=== PATIENT | male | born 1970 | race Caucasian/White ===

== ENCOUNTER 2017-12-10 07:47 | Day surgery (SDC) | payer MEDICARE, BC ==
[~2017-12-10 07:47] MED LIST: Bupivacaine 0.5%/EPINEPHrine 1:200,000 50 ML MDV ONE; Dexamethasone 4 MG/ML SDV ONE; Gentamicin 40 MG/ML 2 ML Vial ONE; Midazolam 1 MG/ML 2 ML SDV ONE; Ondansetron 4 MG/2 ML SDV ONE; Povidone-Iodine 10% Soln 118.25 ML Bottle ONE; Propofol 200 MG/20 ML SDV ONE; Rocuronium 50 MG/5 ML Vial ONE; Succinylcholine 200 MG/10 ML MDV ONE; fentaNYL 250 MCG/5 ML SDV ONE
[2017-12-10] MEDS ORDERED: ceFAZolin 2 GM in Premix Bag 1 BAG IV ONE (08:15)
[2017-12-10] MEDS ORDERED: Lactated Ringers 1,000 ML IV SCH (08:15)
[2017-12-10] MEDS ORDERED: Glycopyrrolate 0.2 MG/ML 5 ML MDV ONE (09:38)
[2017-12-10] MEDS ORDERED: Neostigmine Methylsulfate 1 MG/ML 5 ML Syringe ONE (09:38)
[2017-12-10] MEDS ORDERED: hydrOXYzine HCl 100 MG/2 ML SDV IM ONE (10:41)
[2017-12-10] MEDS ORDERED: Ketorolac 60 MG/2 ML SDV IM ONE (11:59)
--- NOTE | 2017-12-10 15:22 | OR ---
DATE OF PROCEDURE: 12/10/2017 PREOPERATIVE DIAGNOSIS: Right knee medial meniscus tear. POSTOPERATIVE DIAGNOSIS: Right knee medial meniscus tear. PROCEDURE: Right knee arthroscopy and partial medial meniscectomy. DIRECTOR CLINICAL APPLICATIONS: TONIA Fuentes. Physician visitor services information assistant, TONIA Ring, played an essential role in assisting in this case, helping to position the patient, retract structures as needed, as well as suturing and cutting sutures as indicated. Her presence improved patient's safety and decreased operative time. ANESTHESIA: General endotracheal intubation. FLUID: Lactated Ringer solution. ESTIMATED BLOOD LOSS: Less than 10 mL. COMPLICATIONS: None. SPECIMEN: None. DISCHARGE DISPOSITION: Stable to PACU. INDICATIONS: The patient was seen preoperatively in the clinic. He failed nonoperative treatment. Preoperative imaging confirmed the above-mentioned diagnosis. Risks and benefits of the procedure were explained to the patient and informed consent was obtained. DESCRIPTION OF PROCEDURE: The patient was seen preoperatively by myself and the Anesthesia staff in the preoperative holding area, where the operative site was marked. He was brought to the operative suite by the Anesthesia staff, where general anesthesia was administered. All extremities were found to be well padded. His left lower extremity was placed in a stirrup. The right lower extremity had a well-padded tourniquet on the thigh plus a leg le with two gel pads on it. The right lower extremity was prepped and draped in a sterile manner. Time-out was called identifying the correct patient, the correct procedure, the correct site, and that antibiotics had been begun within an appropriate period of time. The right lower extremity was then exsanguinated. Tourniquet was raised to 350 mmHg for 15 minutes and let down after closure. The lateral portal was then made with a scalpel. Trocar was inserted. I then inserted the arthroscope into the suprapatellar pouch, medial. There was minimal chondromalacia of the patella on the anterior femur. I then inspected both medial and lateral gutters, which did not show any osteophytes. I then used a spinal needle to place my medial portal and then placed it with a knife and trocar and inserted my shaver. I then removed the infrapatellar fat pad as well as some synovial tissue and then used the ablation unit to control any bleeding. The anteromedial meniscus was normal. The posterolateral and posteromedial meniscus both had horizontal degenerative tears. These were treated by biting the posterolateral one with a biter and then getting the free edges with a shaver and then ablating. The posteromedial one was able to be taken care of just by shaving and ablating it. Once the free edges were taken down to stable borders, I then moved to the lateral compartment. The lateral meniscus was in good repair. Minimal chondromalacia was seen in both compartments. I then removed my instruments and then injected local anesthetic into the joint as well as the portal sites and then closed with 3- 0 nylon in horizontal mattress manner followed by sterile dressing. The patient was then allowed to awaken from general anesthesia, transferred to his bed, and taken to the PACU in a stable condition. Colton Mortensen DO /[id number]
== END 2017-12-10 13:05 | disposition home or self-care (01) ==
LOC: JP.SDS 07:47
PROVIDERS: ATTEND Orthopaedic Surgery
DX: M23.321 Other meniscus derangements, posterior horn of medial meniscus, right knee (principal); E66.01 Morbid (severe) obesity due to excess calories; Z87.891 Personal history of nicotine dependence
CPT/HCPCS: 29881; J0330; J0690; J1100; J1580; J1885; J2250; J2405; J2704; J2710; J3010; J3410; J7120

== ENCOUNTER 2018-02-16 03:27 | Emergency (ER) | payer MEDICARE, BC ==
[2018-02-16] MEDS ORDERED: Ketorolac 30 MG/ML SDV IVPUSH ONE (03:34)
[2018-02-16] MEDS ORDERED: Tamsulosin 0.4 MG Cap.ER PO ONE (03:35)
[2018-02-16] MEDS ORDERED: HYDROmorphone 1 MG/ML Syringe IVPUSH ONE (03:35)
[2018-02-16] MEDS ORDERED: Metoclopramide 10 MG/2 ML SDV IVPUSH ONE (03:35)
--- NOTE | 2018-02-16 03:58 | EDM.PDOC ---
ED HPI GENERAL MEDICAL PROBLEM - General Chief Complaint: Flank Pain Stated Complaint: LOWER BACK PAIN - RIGHT SIDE Time Seen by Provider: 02/16/18 03:45 Source of Information: Reports: Patient, Old Records, RN History Limitations: Reports: No Limitations - History of Present Illness INITIAL COMMENTS - FREE TEXT/NARRATIVE: 48 yo male here with R flank pain since about 0130h tonight. Pain is associated with nausea. No fever. He denies a hx of kidney stones. He has not voided since the onset of the pain. Onset: Today Onset Date: 02/16/18 Onset Time: 01:30 Duration: Hour(s): (2+), Waxing/Waning Location: Reports: Back (R flank) Quality: Reports: Pressure Severity: Severe Improves with: Reports: None Worsens with: Reports: None Context: Reports: Other (unknown) Associated Symptoms: Reports: Diaphoresis, Nausea/Vomiting. Denies: Fever/ Chills, Rash Treatments COLLECTOR: Reports: Other (see below) (none) Right Flank Pain Score (Numeric/FACES): 3 - Related Data Allergies Allergy/AdvReac Type Severity Reaction Status Date / Time bupropion Allergy Other Verified 12/10/17 08:19 pregabalin Allergy Other Verified 12/10/17 08:19 spironolactone Allergy Other Verified 12/10/17 08:19 Home Meds: Home Meds Amitriptyline [Elavil] 50 mg PO BEDTIME 12/01/17 [History] Aspirin [Halfprin] 81 mg PO DAILY 12/01/17 [History] Clopidogrel [Plavix] 75 mg PO DAILY 12/01/17 [History] Ferrous Gluconate [Iron] 256 mg PO DAILY 12/01/17 [History] Ferrous Sulfate 325 mg PO DAILY 12/01/17 [History] Furosemide [Lasix] 80 mg PO BID 12/01/17 [History] Gabapentin [Neurontin] 1,200 mg PO BEDTIME 12/01/17 [History] Gabapentin [Neurontin] 600 mg PO BID 12/01/17 [History] Ibuprofen [Motrin] 800 mg PO TID PRN 12/01/17 [History] LORazepam [Ativan] 1 mg PO BID PRN 12/01/17 [History] Metoprolol Tartrate 25 mg PO BID 12/01/17 [History] Nitroglycerin [Nitrostat] 0.4 mg SL DAILY PRN 12/01/17 [History] Pantoprazole Sodium [Protonix] 40 mg PO DAILY 12/01/17 [History] Pramipexole Di-HCl [Mirapex] 0.25 mg PO TID 12/01/17 [History] Pravastatin [Pravachol] 20 mg PO DAILY 12/01/17 [History] lamoTRIgine [Lamictal] 50 mg PO DAILY 12/01/17 [History] lamoTRIgine [Lamictal] 100 mg PO WITHDINNER 12/01/17 [History] metFORMIN [Glucophage XR] 1,000 mg PO BIDMEALS 12/01/17 [History] traMADol HCl [Tramadol HCl] 50 mg PO Q6H PRN 12/01/17 [History] Cholecalciferol (Vitamin D3) [Vitamin D3] 1,000 unit PO DAILY 02/16/18 [History] Past Medical History Cardiovascular History: Reports: Stents Musculoskeletal History: Reports: Other (See Below) Other Musculoskeletal History: s/p R knee arthroscopy Psychiatric History: Reports: Anxiety, Depression Endocrine/Metabolic History: Reports: Obesity/BMI 30+ - Infectious Disease History Infectious Disease History: Reports: Chicken Pox, Measles, Mumps - Past Surgical History Musculoskeletal Surgical History: Reports: ORIF Social & Family History - Caffeine Use Caffeine Use: Reports: Tea ED ROS GENERAL - Review of Systems Review Of Systems: See Below Constitutional: Reports: Diaphoresis. Denies: Fever HEENT: Reports: No Symptoms Respiratory: Reports: No Symptoms Cardiovascular: Reports: No Symptoms Endocrine: Reports: No Symptoms GI/Abdominal: Reports: Nausea. Denies: Abdominal Pain, Black Stool, Bloody Stool, Constipation, Diarrhea, Hematochezia, Melena, Vomiting : Reports: Flank Pain. Denies: Dysuria, Hematuria, Urinary Retention Musculoskeletal: Reports: No Symptoms Skin: Reports: Diaphoresis Neurological: Reports: No Symptoms Psychiatric: Reports: No Symptoms ED EXAM, RENAL/ - Physical Exam Exam: See Below Exam Limited By: No Limitations General Appearance: Alert, WD/WN, No Apparent Distress, Obese Eye Exam: Bilateral Eye: Normal Inspection Ears: Normal External Exam, Normal Canal, Hearing Grossly Normal Nose: Normal Inspection, Normal Mucosa, No Blood Throat/Mouth: Normal Inspection, Normal Lips, Normal Voice, No Airway Compromise Head: Atraumatic, Normocephalic Neck: Normal Inspection Respiratory/Chest: No Respiratory Distress, Lungs Clear, Normal Breath Sounds, No Accessory Muscle Use Cardiovascular: Regular Rate, Rhythm, No Edema Back Exam: Normal Inspection. No: CVA Tenderness (R), CVA Tenderness (L) Extremities: Normal Inspection, Normal Range of Motion, Non-Tender Neurological: Alert, Oriented, CN II-XII Intact, Normal Cognition, No Motor/ Sensory Deficits Psychiatric: Normal Affect, Normal Mood Skin Exam: Warm, Dry, Normal Color, No Rash, Cool Course - Vital Signs Text/Narrative:: Good relief with the meds given here in the ER. Last Recorded V/S: Last Vital Signs Temp 36.4 C 02/16/18 03:46 Pulse 97 02/16/18 03:46 Resp 20 02/16/18 03:46 BP 121/86 02/16/18 03:46 Pulse Ox 95 02/16/18 03:46 - Orders/Labs/Meds Orders: Active Orders 24 hr Category Date Time Status UA W/MICROSCOPIC [URIN] Stat Lab 02/16/18 04:21 Ordered Labs: Laboratory Tests 02/16/18 Range/Units 04:21 Urine Color Yellow Urine Appearance Slightly cloudy Urine pH 5.0 (4.5-8.0) Ur Specific [place] 1.025 (1.008-1.030) Urine Protein 30 H (NEGATIVE) mg/dL Urine Glucose (UA) Normal (NEGATIVE) mg/dL Urine Ketones Negative (NEGATIVE) mg/dL Urine Occult Blood Large (NEGATIVE) Urine Nitrite Negative (NEGAITVE) Urine Bilirubin Small (NEGATIVE) Urine Urobilinogen Normal (NORMAL) mg/dL Ur Leukocyte Esterase Small (NEGATIVE) Urine RBC 30-40 H (0-5) Urine WBC 0-5 (0-5) Ur Epithelial Cells Few Amorphous Sediment Not seen Urine Bacteria Few Urine Mucus Moderate Meds: Medications Discontinued Medications Generic Name Dose Route Start Last Admin Trade Name Freq PRN Reason Stop Dose Admin Hydromorphone HCl 1 mg 02/16/18 03:35 02/16/18 03:52 Dilaudid IVPUSH 02/16/18 03:36 1 mg ONETIME ONE Administration Ketorolac Tromethamine 30 mg 02/16/18 03:34 02/16/18 03:45 Toradol IVPUSH 02/16/18 03:35 30 mg ONETIME ONE Administration Metoclopramide HCl 10 mg 02/16/18 03:35 02/16/18 03:48 Reglan IVPUSH 02/16/18 03:36 10 mg ONETIME ONE Administration Tamsulosin HCl 0.4 mg 02/16/18 03:35 02/16/18 03:43 Flomax PO 02/16/18 03:36 0.4 mg ONETIME ONE Administration Departure - Departure Time of Disposition: 05:09 Disposition: Home, Self-Care 01 Condition: Good Clinical Impression: Ureterolithiasis - Discharge Information Referrals: PCP,None [Primary Care Provider] - Forms: ED Department Discharge - My Orders Last 24 Hours: My Active Orders 02/16/18 04:21 UA W/MICROSCOPIC [URIN] Stat - Assessment/Plan Last 24 Hours: My Active Orders 02/16/18 04:21 UA W/MICROSCOPIC [URIN] Stat
== END 2018-02-16 05:28 | disposition home or self-care (01) ==
LOC: JP.ED 03:27
DX: N20.1 Calculus of ureter (principal); F41.9 Anxiety disorder, unspecified; F32.9 Major depressive disorder, single episode, unspecified; E66.9 Obesity, unspecified; Z88.8 Allergy status to other drugs, medicaments and biological substances; Z79.82 Long term (current) use of aspirin; Z79.899 Other long term (current) drug therapy; Z68.42 Body mass index [BMI] 45.0-49.9, adult
CPT/HCPCS: 81001; 96374; 96375; 99284; A9270; J1170; J1885; J2765

== ENCOUNTER 2020-03-11 18:49 | Emergency (ER) | payer BC, MEDICARE | END 2020-03-11 19:29 | disposition left against medical advice (07) | LOC: JP.ED 18:49 | DX: Z53.21 Procedure and treatment not carried out due to patient leaving prior to being seen by health care provider (principal) ==

== ENCOUNTER 2023-04-13 01:13 | Emergency (ER) | payer MEDICARE ==
[2023-04-13] MEDS ORDERED: Bacitracin Oint 1 GM U/D Packet TOP ONE (01:20)
[2023-04-13] MEDS ORDERED: Lidocaine 1% with EPINEPHrine 1:100,000 50 ML MDV SUBCUT STA (01:20)
== END 2023-04-13 02:03 | disposition home or self-care (01) ==
LOC: JP.ED 01:13
DX: I83.891 Varicose veins of right lower extremity with other complications (principal); I25.10 Atherosclerotic heart disease of native coronary artery without angina pectoris; E66.9 Obesity, unspecified; Z68.42 Body mass index [BMI] 45.0-49.9, adult; Z88.8 Allergy status to other drugs, medicaments and biological substances; Z79.82 Long term (current) use of aspirin; Z79.899 Other long term (current) drug therapy
CPT/HCPCS: 12001; 99283

== ENCOUNTER 2023-07-31 17:21 | Emergency (ER) | payer MEDICARE ==
[2023-07-31 17:55] LABS: BASOPHILS ABSOLUTE AUTO 0.09 K/uL (0.00-0.10); BASOPHILS PERCENT AUTO 1.2 % (0.1-1.3); EOSINOPHILS ABSOLUTE AUTO 0.44 K/uL (0.00-0.40); EOSINOPHILS PERCENT AUTO 5.9 % (0.0-5.4); HEMATOCRIT 43.4 % (38.4-49.7); HEMOGLOBIN 13.8 g/dL (12.9-16.9); IMMATURE GRAN ABSOLUTE AUTO 0.03 K/uL (0.00-0.23); IMMATURE GRAN PERCENT AUTO 0.4 % (0.0-0.7); LYMPHOCYTES ABSOLUTE AUTO 0.96 K/uL (0.8-3.3); MEAN CORPUSCULAR HEMOGLOBIN 27.1 pg (31.6-35.5); MEAN CORPUSCULAR HGB CONC 31.8 g/dL (31.6-35.5); MEAN CORPUSCULAR VOLUME 85.3 fL (81.4-99.0); MONOCYTES ABSOLUTE AUTO 0.48 K/uL (0.20-0.90); MONOCYTES PERCENT AUTO 6.5 % (3.3-12.6); NEUTROPHILS ABSOLUTE AUTO 5.41 K/uL (1.0-7.6); PLATELET COUNT,PLT 246 K/uL (130-375); RED BLOOD CELL COUNT 5.09 M/uL (4.14-5.76); WHITE BLOOD CELL COUNT,WBC 7.4 K/uL (3.2-11.0)
[2023-07-31 17:56] LABS: CARBOXYHEMOGLOBIN 2.3 % (0.0-1.6); O2 SATURATION VENOUS 69.7; OXYHEMOGLOBIN 67.4 %; PH,VENOUS 7.373 (7.350-7.450); TOTAL HEMOGLOBIN 14.3 g/dL (13.5-18.0)
[2023-07-31 17:58] LABS: BASE EXCESS VENOUS 3.8 mm/L; BICARBONATE,VENOUS 29.8 mmol/L; PCO2 VENOUS 52.3 mm/Hg; PO2 VENOUS 37.6 mm/Hg
[2023-07-31] MEDS ORDERED: Acetaminophen 500 MG Tab PO ONE (18:14)
[2023-07-31 18:16] LABS: INR 1.1; PROTHROMBIN TIME 10.8 sec (9.2-10.6)
[2023-07-31 18:27] LABS: ALANINE AMINOTRANSFERASE,ALT 18 U/L (12-78); ALBUMIN 3.8 g/dL (3.4-5.0); ALKALINE PHOSPHATASE 93 U/L (46-116); ANION GAP 12.8 mmol/L (5.0-14.0); ASPARTATE AMNIOTRANSFERASE,AST 15 U/L (15-37); BILIRUBIN TOTAL 0.2 mg/dL (0.2-1.0); BLOOD UREA NITROGEN,BUN 15 mg/dL (7-18); CALCIUM 8.8 mg/dL (8.5-10.1); CARBON DIOXIDE,CO2 29 mmol/L (21-32); CHLORIDE,CL 101 mmol/L (100-108); CREATININE 1.4 mg/dL (0.8-1.3); EST CRCL DRUG DOSING (CG) 57.68 mL/min; ESTIMATED GFR 59 mL/min (>60); GLUCOSE RANDOM 132 mg/dL (74-106); POTASSIUM,K 3.8 mmol/L (3.6-5.2); PRO B-TYPE NATRIUR PEPT,BNPPRO 137 pg/mL (5-125); PROTEIN TOTAL,TP 7.5 g/dL (6.4-8.2); SODIUM,NA 139 mmol/L (140-148)
[2023-07-31] MEDS ORDERED: Albuterol/Ipratropium 3.0-0.5 MG/3 ML Neb Soln NEB ONE (18:57)
[2023-07-31 19:24] LABS: APPEARANCE,URINE CLEAR (CLEAR); BILIRUBIN,URINE NEGATIVE (NEGATIVE); COLOR,URINE YELLOW (YELLOW); GLUCOSE,URINE NEGATIVE (NEGATIVE); KETONES,URINE NEGATIVE (NEGATIVE); LEUKOCYTE ESTERASE,URINE NEGATIVE (NEGATIVE); NITRITE,URINE NEGATIVE (NEGATIVE); OCCULT BLOOD,URINE NEGATIVE (NEGATIVE); PH,URINE 6.5 (5.0-8.0); PROTEIN,URINE NEGATIVE (NEGATIVE); UROBILINOGEN,URINE 0.2 EU/dL (0.2-1.0)
[2023-07-31 19:30] LABS: AMORPHOUS SEDIMENT,URINE NOT SEEN; BACTERIA,URINE RARE; EPITHELIAL CELLS,URINE RARE; MUCUS,URINE NOT SEEN; RBC,URINE 0-5 (0-5); WBC,URINE NOT SEEN (0-5)
[2023-07-31] MEDS ORDERED: traMADol 50 MG Tab PO ONE (20:36)
== END 2023-07-31 21:18 | disposition home or self-care (01) ==
LOC: JP.ED 17:21
DX: L03.115 Cellulitis of right lower limb (principal); I25.10 Atherosclerotic heart disease of native coronary artery without angina pectoris; E66.9 Obesity, unspecified; Z79.899 Other long term (current) drug therapy; Z79.82 Long term (current) use of aspirin; Z88.3 Allergy status to other anti-infective agents; Z88.8 Allergy status to other drugs, medicaments and biological substances; Z68.42 Body mass index [BMI] 45.0-49.9, adult
CPT/HCPCS: 36415; 71045; 73562; 80053; 81001; 82803; 83605; 83880; 84484; 85025; 85379; 85610; 85651; 93971; 94640; 99284; A9270; J7620